=== PATIENT | female | born 1930 | race Caucasian/White ===

== ENCOUNTER 2016-11-28 00:44 | Inpatient (IN) | payer MEDICARE, BC ==
[~2016-11-28] VITALS: Ht 165.1 cm; Wt 54.4 kg
[2016-11-28] VITALS (8 sets, daily range): BP systolic 99–123; BP diastolic 52–85
--- NOTE | 2016-11-28 00:53 | Emergency Room Report ---
History of Present Illness General Chief Complaint: Generalized Weakness Source: Patient, EMS Present Illness HPI Is an 86-year-old female with multiple medical problem. She presents with chief complaint of abdominal pain and vomiting. Onset just prior to arrival. Vomiting twice per nonbloody nonbilious. Pain is diffuse in nature. She felt dizzy. EMS gave her fluid and Zofran. Better now. Denies any other complaint. Pain is 7/10. Crampy in nature. Allergies: Coded Allergies: No Known Allergies (Unverified , 11/28/16) Patient History Past Medical History: see triage record, old chart reviewed Past Surgical History: hysterectomy Pertinent Family History: none Social History: Denies: smoking Now: No Immunizations: other Reviewed Nursing Documentation: PMH: Agreed, PSxH: Agreed Nursing Documentation-PMH Hx Gastrointestinal Problems: Yes - COLITIS Review of Systems Eye: Denies: blurred vision, eye pain ENT: Denies: ear pain, nose congestion, throat swelling Respiratory: Denies: cough, shortness of breath Cardiovascular: Denies: chest pain, palpitations Gastrointestinal: Reports: abdominal pain, nausea, vomiting, Denies: diarrhea Musculoskeletal: Denies: back pain, joint pain Skin: Denies: rash Neurological: Denies: headache, numbness Endocrine: Denies: increased thirst, increased urine Hematologic/Lymphatic: Denies: easy bruising All Other Systems: negative except mentioned in HPI Physical Exam Vital Signs Date Time Temp Pulse Resp B/P Pulse Ox O2 Delivery O2 Flow Rate FiO2 11/28/16 00:42 99.0 63 16 148/69 98 Room Air vitals unremarkable Sp02 EP Interpretation: reviewed, normal General Appearance: well appearing, alert, mild distress - Mild Head: normocephalic, atraumatic Eyes: bilateral eye EOMI, bilateral eye PERRL ENT: hearing grossly normal, normal pharynx Neck: full range of motion, supple, no meningismus Respiratory: chest non-tender, lungs clear, normal breath sounds Cardiovascular #1: regular rate, rhythm, no murmur Gastrointestinal: normal bowel sounds, no mass, no organomegaly, no bruit, non- distended, tenderness - Diffuse, decreased bowel sounds Musculoskeletal: back normal, gait/station normal, normal range of motion Psychiatric: mood/affect normal Skin: warm/dry Medical Decision Making Diagnostic Impression: Primary Impression: Intractable nausea and vomiting Qualified Codes: R11.2 - Nausea with vomiting, unspecified Additional Impressions: Dizziness of unknown cause Abdominal pain Qualified Codes: R10.84 - Generalized abdominal pain ER Course Patient presents with vomiting and dizziness. No evidence of CVA with TIA. No evidence of obstruction or acute abdomen. CT scan of abdomen is unremarkable. She still felt nauseous and dizzy. We'll get for further workup. No evidence of ACS, PE, dissection or infection. May be a beginning of a gastroenteritis. Laboratory Tests Test 11/28/16 00:56 11/28/16 01:20 White Blood Count 11.5 K/UL (4.8-10.8) H Red Blood Count 5.22 M/UL (4.20-5.40) Hemoglobin 15.6 G/DL (12.0-16.0) Hematocrit 48.1 % (37.0-47.0) H Mean Corpuscular Volume 92 FL (80-99) Mean Corpuscular Hemoglobin 30.0 PG (27.0-31.0) Mean Corpuscular Hemoglobin Concent 32.6 G/DL (32.0-36.0) Red Cell Distribution Width 12.9 % (11.6-14.8) Platelet Count 196 K/UL (150-450) Mean Platelet Volume 7.9 FL (6.5-10.1) Neutrophils (%) (Auto) 82.8 % (45.0-75.0) H Lymphocytes (%) (Auto) 7.9 % (20.0-45.0) L Monocytes (%) (Auto) 7.5 % (1.0-10.0) Eosinophils (%) (Auto) 0.5 % (0.0-3.0) Basophils (%) (Auto) 1.3 % (0.0-2.0) Sodium Level 143 mEQ/L (135-145) Potassium Level 4.2 mEQ/L (3.4-4.9) Chloride Level 100 mEQ/L (98-107) Carbon Dioxide Level 26 mEQ/L (20-30) Anion Gap 17 (5-15) H Blood Urea Nitrogen 27 mg/dL (7-23) H Creatinine 1.0 mg/dL (0.5-0.9) H Estimat Glomerular Filtration Rate mL/min (>60) Glucose Level 171 mg/dL (74-106) H Calcium Level 9.2 mg/dL (8.6-10.2) Total Bilirubin 0.5 mg/dL (0.0-1.2) Aspartate Amino Transf (AST/SGOT) 22 U/L (5-40) Alanine Aminotransferase (ALT/SGPT) 14 U/L (3-33) Alkaline Phosphatase 83 U/L (35-104) Troponin I < 0.30 ng/mL (<=0.30) Total Protein 7.0 g/dL (6.6-8.7) Albumin 4.2 g/dL (3.5-5.2) Globulin 2.8 g/dL Albumin/Globulin Ratio 1.5 (1.0-2.7) Lipase 79 U/L (< 60) H Urine Color Yellow Urine Appearance Clear Urine pH 7 (4.5-8.0) Urine Specific [place] 1.015 (1.005-1.035) Urine Protein Negative (NEGATIVE) Urine Glucose (UA) Negative (NEGATIVE) Urine Ketones Negative (NEGATIVE) Urine Occult Blood 1+ (NEGATIVE) H Urine Nitrite Negative (NEGATIVE) Urine Bilirubin Negative (NEGATIVE) Urine Urobilinogen Normal MG/DL (0.0-1.0) Urine Leukocyte Esterase Negative (NEGATIVE) Urine RBC 2-4 /HPF (0 - 2) H Urine WBC 0-2 /HPF (0 - 2) Urine Squamous Epithelial Cells Few /LPF (NONE/OCC) Urine Bacteria None /HPF (NONE) Lab Results Impression labs unremarkable. EKG Diagnostic Results Rate: normal Rhythm: NSR ST Segments: no acute changes Rhythm Strip Diag. Results EP Interpretation: yes Rate: 65 Rhythm: NSR, no PVC's, no ectopy Chest X-Ray Diagnostic Results EP Interpretation: Yes Findings: no consolidation, no effusion, no pneumothorax, no acute cardiopulmonary disease Number of Views: 1 CT/MRI/US Diagnostic Results CT/MRI/US Diagnostic Results : Imaging Test Ordered: ct abd and pelvis Impression Neg per radiologist. Last Vital Signs Date Time Temp Pulse Resp B/P Pulse Ox O2 Delivery O2 Flow Rate FiO2 11/28/16 00:42 99.0 63 16 148/69 98 Room Air Status: improved Disposition: ADMITTED INPATIENT Condition: Serious JASON BAR M.D. Nov 28, 2016 00:52
[2016-11-28] MEDS ORDERED: Morphine Sulfate 2mg/ml Inj IVP ONE (01:00)
[2016-11-28 01:13] LABS: BASOPHILS % (AUTO) 1.3 % (0.0-2.0); EOSINOPHILS % (AUTO) 0.5 % (0.0-3.0); LYMPHOCYTES % (AUTO) 7.9 % (20.0-45.0); MEAN CORPUSCULAR HGB CONC 32.6 G/DL (32.0-36.0); MEAN CORPUSCULAR VOLUME 92 FL (80-99); MEAN PLATELET VOLUME 7.9 FL (6.5-10.1); MONOCYTES % (AUTO) 7.5 % (1.0-10.0); NEUTROPHILS % (AUTO) 82.8 % (45.0-75.0); PLATELET COUNT 196 K/UL (150-450); RED BLOOD COUNT 5.22 M/UL (4.20-5.40); RED CELL DISTRIBUTION WIDTH 12.9 % (11.6-14.8); WHITE BLOOD COUNT 11.5 K/UL (4.8-10.8)
[2016-11-28 01:27] LABS: ALANINE AMINOTRANSFERASE 14 U/L (3-33); ALBUMIN/GLOBULIN RATIO 1.5 (1.0-2.7); ANION GAP 17 (5-15); ASPARTATE AMINO TRANSFERASE 22 U/L (5-40); CALCIUM 9.2 mg/dL (8.6-10.2); CARBON DIOXIDE 26 mEQ/L (20-30); CHLORIDE 100 mEQ/L (98-107); HEMOLYSIS 12; LIPASE 79 U/L (< 60); POTASSIUM 4.2 mEQ/L (3.4-4.9); SODIUM 143 mEQ/L (135-145)
[2016-11-28 01:28] LABS: TROPONIN I < 0.30 ng/mL (<=0.30)
[2016-11-28 02:06] LABS: APPEARANCE,URINE CLEAR; KETONES,URINE NEGATIVE (NEGATIVE); LEUKOCYTE ESTERASE ,URINE NEGATIVE (NEGATIVE); NITRITE,URINE NEGATIVE (NEGATIVE); PH,URINE 7 (4.5-8.0); PROTEIN,URINE NEGATIVE (NEGATIVE); SQUAMOUS EPITHELIAL CELL,UR FEW /LPF (NONE/OCC); UROBILINOGEN,URINE NORMAL MG/DL (0.0-1.0); WBC,URINE 0-2 /HPF (0 - 2)
[2016-11-28] MEDS ORDERED: Metoclopramide 10mg/2ml Inj IVP ONE (04:15)
[2016-11-28] MEDS ORDERED: Mylanta II UD 30ml ORAL PRN (07:15)
[2016-11-28] MEDS ORDERED: Nitroglycerin Subl 0.4mg tab (Bottle Of 25) SL PRN (07:15)
[2016-11-28] MEDS ORDERED: Morphine Sulfate 2mg/ml Inj IVP PRN (07:15)
[2016-11-28] MEDS ORDERED: Miralax 17gm pkt ORAL PRN (07:15)
--- NOTE | 2016-11-28 09:18 | History and Physical Report ---
DATE OF ADMISSION: 11/28/2016 TIME SEEN: At 8 a.m. ATTENDING PHYSICIAN: David Duckworth D.O. CONSULTANTS: 1. Jaden Marshall M.D. 2. Randall Neil M.D. 3. Morales Schafer M.D. 4. Houston Guillen M.D. CHIEF COMPLAINT: Dizziness, vomiting, lightheadedness, and abdominal pain. BRIEF HISTORY: This is an 86-year-old female, who lives at home, presents to [facility] with a history of dizziness, lightheaded, vomiting, and abdominal pain. The patient diagnosed with above, admitted to medical floor for further treatment. Currently, calm in bed, feeling little bit better, slightly dizzy. No complaints otherwise. REVIEW OF SYSTEMS: No chest pain. No shortness of breath. No nausea, vomiting, or diarrhea. PAST MEDICAL HISTORY: Hysterectomy. MEDICATIONS: Include, 1. Protonix. 2. Tylenol. 3. Motrin. 4. MiraLax. 5. Zofran. 6. Restoril. 7. Benadryl. 8. Dilantin. 9. Nitroglycerin. ALLERGIES: Denies. SOCIAL HISTORY: No smoking. No alcohol. No intravenous drug abuse. FAMILY HISTORY: Noncontributory. PHYSICAL EXAMINATION: GENERAL: Calm in bed, oriented x2, in no acute distress. VITAL SIGNS: Temperature is 98, pulse 88, respirations 16, and blood pressure 117/60. CARDIOVASCULAR: No murmur. LUNGS: Distant and clear. ABDOMEN: Positive bowel sounds. Nontender. Nondistended. EXTREMITIES: No cyanosis, clubbing, or edema. NEUROLOGIC: The patient moves all extremities, but slightly weak. LABORATORY AND DIAGNOSTIC DATA: White count 11.5, otherwise CBC is normal. BMP shows BUN and creatinine 27 and 1.0, glucose 171, otherwise normal. Urinalysis is negative. ASSESSMENT: 1. Vomiting. 2. Diabetes. 3. Dizziness. 4. Lightheadedness. 5. Abdominal pain. PLAN: 1. Continue premedications. 2. OT/PT. 3. Dietary evaluation. 4. IV fluids. 5. Blood pressure and blood sugar control. 6. Pain control. 7. CBC and BMP. 8. Dr. Marshall, Dr. Neil, Dr. Schafer, and Dr. Guillen to consult. David Duckworth D.O. DR: JASON JOB#: [id number] CC:
[2016-11-28] MEDS: Pantoprazole Inj IVP SCH (10:11)
[2016-11-28] MEDS: Heparin 5000 units/ml inj SUBQ SCH ×2 (10:12→20:58)
[2016-11-28] MEDS ORDERED: Meclizine 25mg tab ORAL PRN (10:15)
--- NOTE | 2016-11-28 10:36 | Neurology Progress Note ---
Objective Physical Exam Last Vital Signs Date Time Temp Pulse Resp B/P Pulse Ox O2 Delivery O2 Flow Rate FiO2 11/28/16 08:02 98.2 88 16 117/60 94 Room Air Laboratory Tests Test 11/28/16 00:56 11/28/16 01:20 White Blood Count 11.5 K/UL (4.8-10.8) H Red Blood Count 5.22 M/UL (4.20-5.40) Hemoglobin 15.6 G/DL (12.0-16.0) Hematocrit 48.1 % (37.0-47.0) H Mean Corpuscular Volume 92 FL (80-99) Mean Corpuscular Hemoglobin 30.0 PG (27.0-31.0) Mean Corpuscular Hemoglobin Concent 32.6 G/DL (32.0-36.0) Red Cell Distribution Width 12.9 % (11.6-14.8) Platelet Count 196 K/UL (150-450) Mean Platelet Volume 7.9 FL (6.5-10.1) Neutrophils (%) (Auto) 82.8 % (45.0-75.0) H Lymphocytes (%) (Auto) 7.9 % (20.0-45.0) L Monocytes (%) (Auto) 7.5 % (1.0-10.0) Eosinophils (%) (Auto) 0.5 % (0.0-3.0) Basophils (%) (Auto) 1.3 % (0.0-2.0) Sodium Level 143 mEQ/L (135-145) Potassium Level 4.2 mEQ/L (3.4-4.9) Chloride Level 100 mEQ/L (98-107) Carbon Dioxide Level 26 mEQ/L (20-30) Anion Gap 17 (5-15) H Blood Urea Nitrogen 27 mg/dL (7-23) H Creatinine 1.0 mg/dL (0.5-0.9) H Estimat Glomerular Filtration Rate mL/min (>60) Glucose Level 171 mg/dL (74-106) H Calcium Level 9.2 mg/dL (8.6-10.2) Total Bilirubin 0.5 mg/dL (0.0-1.2) Aspartate Amino Transf (AST/SGOT) 22 U/L (5-40) Alanine Aminotransferase (ALT/SGPT) 14 U/L (3-33) Alkaline Phosphatase 83 U/L (35-104) Troponin I < 0.30 ng/mL (<=0.30) Total Protein 7.0 g/dL (6.6-8.7) Albumin 4.2 g/dL (3.5-5.2) Globulin 2.8 g/dL Albumin/Globulin Ratio 1.5 (1.0-2.7) Lipase 79 U/L (< 60) H Urine Color Yellow Urine Appearance Clear Urine pH 7 (4.5-8.0) Urine Specific [place] 1.015 (1.005-1.035) Urine Protein Negative (NEGATIVE) Urine Glucose (UA) Negative (NEGATIVE) Urine Ketones Negative (NEGATIVE) Urine Occult Blood 1+ (NEGATIVE) H Urine Nitrite Negative (NEGATIVE) Urine Bilirubin Negative (NEGATIVE) Urine Urobilinogen Normal MG/DL (0.0-1.0) Urine Leukocyte Esterase Negative (NEGATIVE) Urine RBC 2-4 /HPF (0 - 2) H Urine WBC 0-2 /HPF (0 - 2) Urine Squamous Epithelial Cells Few /LPF (NONE/OCC) Urine Bacteria None /HPF (NONE) Impression/Recommendations Problems: (1) Acute onset positional vertigo, nausea/vomiting,gait ataxia. (2) r/o Benign positional vertigo r.o acute stroke in post circulation (3) hyperglycemia (4) hearing loss Status: stable Recommendations #[id number] stat MRI Brain ONEL HOLBROOK Nov 28, 2016 10:36
--- NOTE | 2016-11-28 10:51 | Diagnostic Imaging Report ---
Indication: Abdominal pain Technique: Ultrasound of the abdomen. Comparison: CT abdomen and pelvis from earlier the same day Findings: Visualized pancreas is without focal sonographic abnormality. No pancreatic fluid collections are seen. The liver is normal in size and echogenicity. No focal liver lesions are identified. Visualized portions of the main portal vein and the hepatic veins are grossly unremarkable although incompletely evaluated. The gallbladder is unremarkable without evidence of stones. Gallbladder wall thickness is within normal limits. Sonographic Wilkins's is negative. Common bile duct measures 5 mm. Bilateral kidneys demonstrate normal echogenicity. No focal renal lesions are seen. There is no hydronephrosis. No echogenic renal stones are identified. The spleen is normal in size and echogenicity. The visualized aorta is normal in caliber. Visualized portions of the inferior vena cava are unremarkable. Impression: No evidence of gallstones. No sonographically evident focal pancreatic abnormality. Correlation with pancreatic enzymes recommended. No hydronephrosis.
[2016-11-28 11:36] LABS: CHOLESTEROL/HDL RATIO 2.1 (3.3-4.4)
[2016-11-28] MEDS ORDERED: D5 1/2NS 1,000 ML IV SCH ×2 (13:15→17:40)
--- NOTE | 2016-11-28 13:25 | Consultation ---
History of Present Illness General Date patient seen: Nov 28, 2016 Chief Complaint: weakness and dyspnea Referring physician: Dr. Duckworth Reason for Consultation: Inpatinet management Present Illness HPI 86 yo female with pmhx of dizziness, lightheaded, vomiting, and abdominal pain. A CXR obtained in the ER demonstrated left lung collapse I was asked to consult on the case. The patient appears to be in no acute respiratory distress, pulse oximetry is also adequate and physiologically acceptable range. Patient is not able to give history secondary to weakness and lethargy, history was obtained from the hospitalist and ER physician. At this point aspiration precautions and 2 pillow elevation of left chest is recommended to conservatively address the patients apparent left lung collapse and follow up CXR will be indicated if the patient has worsening of symptomology. Allergies: Coded Allergies: No Known Allergies (Unverified , 11/28/16) Patient History Healthcare decision maker Resuscitation status Full Code Advanced Directive on File Past Medical/Surgical History Past Medical/Surgical History: (1) colitis (2) hearing loss (3) Acute onset positional vertigo, nausea/vomiting,gait ataxia. 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 Last 24 Hour Vital Signs Date Time Temp Pulse Resp B/P Pulse Ox O2 Delivery O2 Flow Rate FiO2 11/28/16 11:16 99.9 84 16 115/61 94 Room Air 11/28/16 08:02 98.2 88 16 117/60 94 Room Air 11/28/16 05:30 98.1 85 20 115/53 100 Room Air 11/28/16 04:37 98.0 86 21 112/55 100 Room Air 11/28/16 04:37 98.0 86 21 112/55 100 Room Air 11/28/16 03:00 97.9 83 20 111/52 98 Room Air 11/28/16 00:50 98.7 74 16 99/85 99 Room Air 11/28/16 00:42 99.0 63 16 148/69 98 Room Air Intake and Output 11/27/16 11/28/16 19:00 07:00 Intake Total 1000 ml Output Total 400 ml Balance 600 ml Intake Oral 0 ml IV Total 1000 ml Output Urine Total 400 ml # Voids 1 Laboratory Tests Test 11/28/16 00:56 11/28/16 01:20 11/28/16 10:45 White Blood Count 11.5 K/UL (4.8-10.8) H Red Blood Count 5.22 M/UL (4.20-5.40) Hemoglobin 15.6 G/DL (12.0-16.0) Hematocrit 48.1 % (37.0-47.0) H Mean Corpuscular Volume 92 FL (80-99) Mean Corpuscular Hemoglobin 30.0 PG (27.0-31.0) Mean Corpuscular Hemoglobin Concent 32.6 G/DL (32.0-36.0) Red Cell Distribution Width 12.9 % (11.6-14.8) Platelet Count 196 K/UL (150-450) Mean Platelet Volume 7.9 FL (6.5-10.1) Neutrophils (%) (Auto) 82.8 % (45.0-75.0) H Lymphocytes (%) (Auto) 7.9 % (20.0-45.0) L Monocytes (%) (Auto) 7.5 % (1.0-10.0) Eosinophils (%) (Auto) 0.5 % (0.0-3.0) Basophils (%) (Auto) 1.3 % (0.0-2.0) Sodium Level 143 mEQ/L (135-145) Potassium Level 4.2 mEQ/L (3.4-4.9) Chloride Level 100 mEQ/L (98-107) Carbon Dioxide Level 26 mEQ/L (20-30) Anion Gap 17 (5-15) H Blood Urea Nitrogen 27 mg/dL (7-23) H Creatinine 1.0 mg/dL (0.5-0.9) H Estimat Glomerular Filtration Rate mL/min (>60) Glucose Level 171 mg/dL (74-106) H Calcium Level 9.2 mg/dL (8.6-10.2) Total Bilirubin 0.5 mg/dL (0.0-1.2) Aspartate Amino Transf (AST/SGOT) 22 U/L (5-40) Alanine Aminotransferase (ALT/SGPT) 14 U/L (3-33) Alkaline Phosphatase 83 U/L (35-104) Troponin I < 0.30 ng/mL (<=0.30) Total Protein 7.0 g/dL (6.6-8.7) Albumin 4.2 g/dL (3.5-5.2) Globulin 2.8 g/dL Albumin/Globulin Ratio 1.5 (1.0-2.7) Lipase 79 U/L (< 60) H Urine Color Yellow Urine Appearance Clear Urine pH 7 (4.5-8.0) Urine Specific [place] 1.015 (1.005-1.035) Urine Protein Negative (NEGATIVE) Urine Glucose (UA) Negative (NEGATIVE) Urine Ketones Negative (NEGATIVE) Urine Occult Blood 1+ (NEGATIVE) H Urine Nitrite Negative (NEGATIVE) Urine Bilirubin Negative (NEGATIVE) Urine Urobilinogen Normal MG/DL (0.0-1.0) Urine Leukocyte Esterase Negative (NEGATIVE) Urine RBC 2-4 /HPF (0 - 2) H Urine WBC 0-2 /HPF (0 - 2) Urine Squamous Epithelial Cells Few /LPF (NONE/OCC) Urine Bacteria None /HPF (NONE) Triglycerides Level 57 mg/dL (< 150) Cholesterol Level 239 mg/dL (< 200) H LDL Cholesterol 114 mg/dL (60-99) H HDL Cholesterol 114 mg/dL (> 60) H Cholesterol/HDL Ratio 2.1 (3.3-4.4) L Vitamin B12 Level 284 pg/mL (211-946) Height (Feet): 5 Height (Inches): 5.00 Weight (Pounds): 120 Medications Current Medications Medications (Trade) Dose Ordered Sig/Dalia Route PRN Reason Start Time Stop Time Status Last Admin Dose Admin Acetaminophen (Tylenol) 650 mg Q4H PRN ORAL fever 11/28/16 07:15 12/28/16 07:14 Al Hydroxide/Mg Hydroxide (Mylanta II) 30 ml Q6H PRN ORAL dyspepsia 11/28/16 07:15 12/28/16 07:14 Dextrose (Dextrose 50%) STAT PRN IV Hypoglycemia 11/28/16 07:15 12/28/16 07:14 Dextrose/Sodium Chloride (D5 0.45% NS) 1,000 ml @ 75 mls/hr [id number] IV 11/28/16 13:15 12/28/16 13:14 11/28/16 13:07 Diphenhydramine HCl (Benadryl) 25 mg Q6H PRN ORAL Itching/Pruritis 11/28/16 07:15 12/28/16 07:14 Heparin Sodium (Porcine) (Heparin 5000 units/ml) 5,000 units EVERY 12 HOURS SUBQ 11/28/16 09:00 12/28/16 08:59 11/28/16 10:12 Meclizine HCl 12.5 mg 12.5 mg Q6H PRN ORAL for dizziness 11/28/16 10:15 12/28/16 10:14 Morphine Sulfate (Morphine Sulfate) 2 mg EVERY 4 HOURS PRN IVP severe Pain (Pain Scale 7-10) 11/28/16 07:15 12/05/16 07:14 Nitroglycerin (Ntg) 0.4 mg Q5M X 3 DOSES PRN SL Prn Chest Pain 11/28/16 07:15 12/28/16 07:14 Ondansetron HCl (Zofran) 4 mg Q6H PRN IVP Nausea & Vomiting 11/28/16 07:15 12/28/16 07:14 Pantoprazole (Protonix) 40 mg DAILY IVP 11/28/16 09:00 12/28/16 08:59 11/28/16 10:11 Polyethylene Glycol (Miralax) 17 gm HSPRN PRN ORAL Constipation 11/28/16 07:15 12/28/16 07:14 Temazepam (Restoril) 15 mg HSPRN PRN ORAL Insomnia 11/28/16 07:15 12/05/16 07:14 Assessment/Plan Problem List: (1) Abdominal pain ICD Codes: R10.9 - Unspecified abdominal pain SNOMED: 82589037, [id number] Qualifiers: Qualified Codes: R10.84 - Generalized abdominal pain (2) Intractable nausea and vomiting ICD Codes: R11.2 - Nausea with vomiting, unspecified SNOMED: 185270975, [id number] Qualifiers: Qualified Codes: R11.2 - Nausea with vomiting, unspecified (3) Dehydration ICD Codes: E86.0 - Dehydration SNOMED: 15324762 Status: stable, progressing Assessment/Plan NPO IV fluids symptomatic treatment check electrolytes start Levoflox for low grade temp f/u GI Recommendations. MICHAEL BONNER Nov 28, 2016 13:25
--- NOTE | 2016-11-28 15:09 | Cardiology Progress Note ---
Assessment/Plan Assessment/Plan The patient is seen and examined, full consult note is dictated. Objective Last 24 Hour Vital Signs Date Time Temp Pulse Resp B/P Pulse Ox O2 Delivery O2 Flow Rate FiO2 11/28/16 11:16 99.9 84 16 115/61 94 Room Air 11/28/16 08:02 98.2 88 16 117/60 94 Room Air 11/28/16 05:30 98.1 85 20 115/53 100 Room Air 11/28/16 04:37 98.0 86 21 112/55 100 Room Air 11/28/16 04:37 98.0 86 21 112/55 100 Room Air 11/28/16 03:00 97.9 83 20 111/52 98 Room Air 11/28/16 00:50 98.7 74 16 99/85 99 Room Air 11/28/16 00:42 99.0 63 16 148/69 98 Room Air Intake and Output 11/27/16 11/28/16 19:00 07:00 Intake Total 1000 ml Output Total 400 ml Balance 600 ml Intake Oral 0 ml IV Total 1000 ml Output Urine Total 400 ml # Voids 1 Laboratory Tests Test 11/28/16 00:56 11/28/16 01:20 11/28/16 10:45 White Blood Count 11.5 K/UL (4.8-10.8) H Red Blood Count 5.22 M/UL (4.20-5.40) Hemoglobin 15.6 G/DL (12.0-16.0) Hematocrit 48.1 % (37.0-47.0) H Mean Corpuscular Volume 92 FL (80-99) Mean Corpuscular Hemoglobin 30.0 PG (27.0-31.0) Mean Corpuscular Hemoglobin Concent 32.6 G/DL (32.0-36.0) Red Cell Distribution Width 12.9 % (11.6-14.8) Platelet Count 196 K/UL (150-450) Mean Platelet Volume 7.9 FL (6.5-10.1) Neutrophils (%) (Auto) 82.8 % (45.0-75.0) H Lymphocytes (%) (Auto) 7.9 % (20.0-45.0) L Monocytes (%) (Auto) 7.5 % (1.0-10.0) Eosinophils (%) (Auto) 0.5 % (0.0-3.0) Basophils (%) (Auto) 1.3 % (0.0-2.0) Sodium Level 143 mEQ/L (135-145) Potassium Level 4.2 mEQ/L (3.4-4.9) Chloride Level 100 mEQ/L (98-107) Carbon Dioxide Level 26 mEQ/L (20-30) Anion Gap 17 (5-15) H Blood Urea Nitrogen 27 mg/dL (7-23) H Creatinine 1.0 mg/dL (0.5-0.9) H Estimat Glomerular Filtration Rate mL/min (>60) Glucose Level 171 mg/dL (74-106) H Calcium Level 9.2 mg/dL (8.6-10.2) Total Bilirubin 0.5 mg/dL (0.0-1.2) Aspartate Amino Transf (AST/SGOT) 22 U/L (5-40) Alanine Aminotransferase (ALT/SGPT) 14 U/L (3-33) Alkaline Phosphatase 83 U/L (35-104) Troponin I < 0.30 ng/mL (<=0.30) Total Protein 7.0 g/dL (6.6-8.7) Albumin 4.2 g/dL (3.5-5.2) Globulin 2.8 g/dL Albumin/Globulin Ratio 1.5 (1.0-2.7) Lipase 79 U/L (< 60) H Urine Color Yellow Urine Appearance Clear Urine pH 7 (4.5-8.0) Urine Specific [place] 1.015 (1.005-1.035) Urine Protein Negative (NEGATIVE) Urine Glucose (UA) Negative (NEGATIVE) Urine Ketones Negative (NEGATIVE) Urine Occult Blood 1+ (NEGATIVE) H Urine Nitrite Negative (NEGATIVE) Urine Bilirubin Negative (NEGATIVE) Urine Urobilinogen Normal MG/DL (0.0-1.0) Urine Leukocyte Esterase Negative (NEGATIVE) Urine RBC 2-4 /HPF (0 - 2) H Urine WBC 0-2 /HPF (0 - 2) Urine Squamous Epithelial Cells Few /LPF (NONE/OCC) Urine Bacteria None /HPF (NONE) Triglycerides Level 57 mg/dL (< 150) Cholesterol Level 239 mg/dL (< 200) H LDL Cholesterol 114 mg/dL (60-99) H HDL Cholesterol 114 mg/dL (> 60) H Cholesterol/HDL Ratio 2.1 (3.3-4.4) L Vitamin B12 Level 284 pg/mL (211-946) [place] PAULINO Nov 28, 2016 15:09
[2016-11-28] MEDS: D5NS 1,000 ML IV SCH (16:25)
--- NOTE | 2016-11-28 21:28 | Consultation ---
DATE OF CONSULTATION: 11/28/2016 NEUROLOGICAL CONSULTATION CONSULTING PHYSICIAN: Houston Guillen M.D. REQUESTING PHYSICIAN: David Duckworth D.O. HISTORY OF PRESENT ILLNESS: The patient is an 86-year-old female, seen in neurological consultation to evaluate a new onset of vertigo, nausea, and vomiting. The patient informed me that yesterday, she was doing fairly well and prepared her dinner. After having dinner at around 6 p.m., she was sitting and watching TV when approximately at 8 or 9 p.m., she had a very new onset of acute spinning sensation accompanied by severe nausea and vomiting. The patient tried to get up and ambulate, but was profoundly weak, is up herself to the floor being unable to get up. She tried to call her , who was asleep at that time, but after banging to the wall, he woke up and found her on the ground. She had a bowel movement with some blood. She was fully awake. Paramedics were called to the scene. She was brought to this hospital. She was complaining of abdominal pain, vomiting, and dizziness. The patient was started on intravenous fluids, Zofran, started to feel some improvement. Her vital signs were stable with temperature 99.1 degrees, and blood pressure 148/69. Her initial workup included laboratory studies with WBC of 11.5. Chemistry panel, BUN of 27, creatinine 1.0, lipase 79, and anion gap of 17. Urinalysis, unremarkable. Her EKG, normal sinus rhythm. No acute changes. No PVC. No ectopies. Chest x-ray, no acute cardiopulmonary disease. CT scan of the abdomen and pelvis was negative as per Radiology. The patient now reports that overnight, she was not sleeping well and was quite uncomfortable. Currently, she is complaining of generalized weakness, dull headache, and lightheadedness. PAST MEDICAL HISTORY: The patient has a history of ulcerative colitis 50 years ago, but she is currently still on Asacol. The patient is seeing an internists, Melissa. The patient denies any other major medical problems. She was not on any other medications. SOCIAL HISTORY: She is , her currently at bedside. The patient lives in a separate home and she takes care of the house and she does her dinners being socially and physically active. No alcohol. No drug abuse. Nonsmoker. FAMILY HISTORY: Noncontributory. REVIEW OF SYMPTOMS: A 14-point of review of system was obtained. This was negative except hearing loss bilaterally, hemorrhoids, and currently mild headaches, lightheadedness, slight nausea, and difficulty ambulation. Denies chest pain or palpitations or respiratory difficulties. PHYSICAL EXAMINATION: GENERAL: A well-developed, well-nourished, pleasant lady, not in acute distress, lying comfortably in bed. Her is at bedside. VITAL SIGNS: Her vital signs, now stable. Blood pressure 117/60, heart rate of 88, and afebrile. MUSCULOSKELETAL: Unremarkable. There is no deformities. Peripheral pulses 1+ and symmetric. MENTAL STATUS: The patient is alert and oriented x3 with no evidence of aphasia or apraxia. Cognitive function normal. CRANIAL NERVE II: Pupils both responding to light and accommodation. Extraocular movement full range. No nystagmus. CRANIAL NERVE V: Normal corneal responses. CRANIAL NERVE VII: No facial asymmetry. CRANIAL NERVE VIII: Decreased hearing bilaterally. Her head turns with as the patient was getting up, she felt dizziness. No nystagmus noted. CRANIAL NERVE IX THROUGH XII: Tongue is in midline. Symmetric palate elevation. MOTOR EXAMINATION: Motor examination, normal muscle tone and strength 5/5 in all extremities. Deep tendon reflexes 1+ and symmetric with downgoing toes on both sides. SENSORY EXAM: Normal to pinprick and light touch. Coordination, clumsy shjngv-pj-acan bilaterally. Normal vimt-wj-rgow test bilaterally. Positive Romberg test. Gait, wobbly and unstable. IMPRESSION: 1. Acute onset of positional vertigo, nausea, vomiting, and gait ataxia. Rule out a stroke in posterior circulation. Rule out benign positional paroxysmal vertigo. 2. Ulcerative colitis. 3. Hemorrhoids. 4. Hearing loss. 5. Hyperglycemia. RECOMMENDATION: 1. Stat MRI of the brain to rule out acute stroke. 2. Meclizine 12.5 mg t.i.d. p.r.n. 3. Guaiac stool. 4. Lipid panel, B12, thyroid, sedimentation rate, and ALLAN. 5. Strict bedrest. Fall precaution. 6. Repeat CBC and electrolyte panel. Thank you for allowing me to see this interesting patient in neurological consultation. Houston Roz Guillen DR: JAYCE JOB#: [id number] CC:
[2016-11-29] VITALS: BP 135/67
--- NOTE | 2016-11-29 03:38 | Consultation ---
DATE OF CONSULTATION: 11/28/2016 REFERRING PHYSICIAN: David Duckworth D.O. REASON FOR CONSULTATION: Management of hypotension. HISTORY OF PRESENT ILLNESS: The patient is a very pleasant, delightful, 86-year-old female, who presents to the hospital with abdominal pain as well as nausea and vomiting. Apparently, she has had a few episodes of vomiting and as a result became dizzy and lightheaded. On arrival to emergency department, blood pressure was 148/69, orthostatic was not checked, pulse was 63, and temperature was 99.0 degrees Fahrenheit. She had mild leukocytosis. The patient was admitted to Med/Surg with diagnosis of intractable nausea and vomiting. Of note, her lipase was also elevated at 78. Cardiology consultation was made as her blood pressure dropped from the initial point to 99/85 mmHg. Her heart rate has also jumped at 88 beats per minute. At the bedside, the patient is alert and awake and not complaining of chest pain or shortness of breath. She has mild dizziness and lightheadedness at this point. She also complains of some reflux. PAST MEDICAL HISTORY: Includes history of colitis, for which, she does not take any medication. PAST SURGICAL HISTORY: Hysterectomy. FAMILY HISTORY: No premature coronary artery disease in first-degree relatives. SOCIAL HISTORY: Denies any tobacco or illicit drug use. She drinks a glass of wine occasionally. LIST OF MEDICATIONS: None. REVIEW OF SYSTEMS: Constitutional: She has some generalized weakness and some chills and fever. HEENT: Denies any headache, diplopia, or blurred vision. Cardiovascular: Denies any chest pain, shortness of breath, PND, orthopnea, or leg swelling. Pulmonary: Denies any cough, hemoptysis, or wheezing. Gastrointestinal: She had some abdominal pain as well as intractable nausea and vomiting, but no GI bleed that brought to my attention that the patient also had some coffee-ground emesis. Genitourinary: Denies any hematuria, dysuria, or incontinence. Neurology: Denies any motor dysfunction, sensory deficit, or altered speech. Musculoskeletal: Denies any arthralgia or myalgia. PHYSICAL EXAMINATION: VITAL SIGNS: Blood pressure was 148/69, dropped to 99/85; heart rate 88; respirations of 16; O2 saturation 99% on room air; and temperature was 99.9 degrees Fahrenheit. GENERAL: The patient is a very unfortunate 86-year-old female, in no apparent respiratory distress, alert, and oriented x4. HEENT: Atraumatic and normocephalic. Anicteric. Pupils are equal, round, and reactive to light and accommodation. Extraocular muscles are intact. NECK: JVP is 0. No carotid bruit. Carotid upstroke is 2+ bilaterally. CARDIOVASCULAR: Normal S1 and S2. Regular rate and rhythm. No murmurs, gallops, or rubs. PMI is at fourth intercostal space at midclavicular line. LUNGS: Clear to auscultation bilaterally. ABDOMEN: Slight tenderness over the epigastric area, but normal bowel sounds. Soft and nontender. No hepatosplenomegaly. EXTREMITIES: No evidence of edema, clubbing, or cyanosis. LABORATORY FINDINGS: Sodium 143, potassium is 4.2, chloride 100, bicarbonate is 26, BUN of 27, creatinine 1.0, glucose is 171, and calcium is 9.2. Troponin I is less than 0.3. Total cholesterol was 239, LDL was 114, HDL was 114, and lipase was 79. WBC 11.5, hemoglobin of 15.6, hematocrit of 48.1, and platelet count is 196,000. Abdominal ultrasound showed no evidence of gallstones. 12-lead electrocardiogram per paramedics showed sinus rhythm at a rate of [address] and T-wave abnormalities. ASSESSMENT AND PLAN: The patient is a very unfortunate 86-year-old female, seen in Cardiology consultation at request of Dr. Duckworth. 1. Hypotension secondary to volume loss due to intractable nausea and vomiting. The management of this condition is fluid resuscitation with normal saline. I would like to start with D5 normal saline. The reason for nausea and vomiting, most likely the clinical picture is acute pancreatitis. Gastroenterology, Dr. Franco has been informed. The patient has been placed on NPO; and however, he started with a clear liquid, which she tolerates. 2. History of colitis in the past, on no medication. 3. At this time, I would like to order a 2D echocardiography for assessment of left ventricular systolic and diastolic function. I would like to thank, Dr. Ivey for allowing me to participate in the care of this patient. Morales Schafer M.D. DR: JESSE JOB#: [id number] CC:
[2016-11-29 04:00] VITALS: BP 126/59
[2016-11-29] MEDS: D5NS 1,000 ML IV SCH (06:00)
--- NOTE | 2016-11-29 07:49 | General Progress Note ---
Assessment/Plan Problem List: (1) Intractable nausea and vomiting ICD Codes: R11.2 - Nausea with vomiting, unspecified SNOMED: 687354413, [id number] Qualifiers: Qualified Codes: R11.2 - Nausea with vomiting, unspecified (2) Dizziness of unknown cause ICD Codes: R42 - Dizziness and giddiness SNOMED: 844410841 (3) Acute onset positional vertigo, nausea/vomiting,gait ataxia. (4) r/o Benign positional vertigo r.o acute stroke in post circulation (5) hyperglycemia (6) Dehydration ICD Codes: E86.0 - Dehydration SNOMED: 99396885 (7) Abdominal pain ICD Codes: R10.9 - Unspecified abdominal pain SNOMED: 43587443, 365753468 Qualifiers: Qualified Codes: R10.84 - Generalized abdominal pain Status: stable, progressing, tolerating diet Assessment/Plan ot pt diet cbc bmp in am dc plan Subjective Constitutional: Reports: weakness Allergies: Coded Allergies: No Known Allergies (Unverified , 11/28/16) All Systems: reviewed and negative except above Subjective sleepy calm Objective Last 24 Hour Vital Signs Date Time Temp Pulse Resp B/P Pulse Ox O2 Delivery O2 Flow Rate FiO2 11/29/16 04:00 98.6 72 17 126/59 100 Room Air 11/29/16 00:00 98.6 80 17 135/67 99 Room Air 11/28/16 20:00 98.1 81 16 117/64 92 Room Air 11/28/16 15:39 98.2 90 15 123/63 93 Room Air 11/28/16 11:16 99.9 84 16 115/61 94 Room Air 11/28/16 08:02 98.2 88 16 117/60 94 Room Air Intake and Output 11/28/16 11/29/16 19:00 07:00 Intake Total 1325 ml 1087 ml Output Total 800 ml 500 ml Balance 525 ml 587 ml Intake Oral 1100 ml 300 ml IV Total 225 ml 787 ml Output Urine Total 800 ml 500 ml # Voids 2 Laboratory Tests 11/28/16 10:45: Triglycerides Level 57, Cholesterol Level 239H, LDL Cholesterol 114H, HDL Cholesterol 114H, Cholesterol/HDL Ratio 2.1L, Vitamin B12 Level 284 11/28/16 22:43: Stool Occult Blood [Pending] 11/29/16 05:10: White Blood Count [Pending], Red Blood Count [Pending], Hemoglobin [Pending], Hematocrit [Pending], Mean Corpuscular Volume [Pending], Mean Corpuscular Hemoglobin [Pending], Mean Corpuscular Hemoglobin Concent [Pending], Red Cell Distribution Width [Pending], Platelet Count [Pending], Mean Platelet Volume [ Pending], Neutrophils (%) (Auto) [Pending], Lymphocytes (%) (Auto) [Pending], Monocytes (%) (Auto) [Pending], Eosinophils (%) (Auto) [Pending], Basophils (%) (Auto) [Pending], Activated Partial Thromboplast Time [Pending], Sodium Level [ Pending], Potassium Level [Pending], Chloride Level [Pending], Carbon Dioxide Level [Pending], Blood Urea Nitrogen [Pending], Creatinine [Pending], Estimat Glomerular Filtration Rate [Pending], Glucose Level [Pending], Calcium Level [ Pending], Total Bilirubin [Pending], Aspartate Amino Transf (AST/SGOT) [Pending] , Alanine Aminotransferase (ALT/SGPT) [Pending], Alkaline Phosphatase [Pending] , Total Protein [Pending], Albumin [Pending], Globulin [Pending], Amylase Level [Pending], Lipase [Pending] Height (Feet): 5 Height (Inches): 5.00 Weight (Pounds): 120 General Appearance: lethargic EENT: normal ENT inspection Neck: normal alignment Cardiovascular: normal peripheral pulses, normal rate, regular rhythm Respiratory/Chest: chest wall non-tender, lungs clear, normal breath sounds Abdomen: normal bowel sounds, non tender, soft Extremities: normal inspection Edema: no edema noted Arm (L), no edema noted Arm (R), no edema noted Leg (L), no edema noted Leg (R), no edema noted Pedal (L), no edema noted Pedal (R), no edema noted Generalized Neurologic: responsive, motor weakness Skin: normal pigmentation, warm/dry KADEN FLEMING Nov 29, 2016 07:49
[2016-11-29 07:55] LABS: BASOPHILS % (AUTO) 1.1 % (0.0-2.0); EOSINOPHILS % (AUTO) 3.8 % (0.0-3.0); LYMPHOCYTES % (AUTO) 25.4 % (20.0-45.0); MEAN CORPUSCULAR HEMOGLOBIN 30.1 PG (27.0-31.0); MEAN CORPUSCULAR HGB CONC 32.7 G/DL (32.0-36.0); MEAN CORPUSCULAR VOLUME 92 FL (80-99); MEAN PLATELET VOLUME 8.1 FL (6.5-10.1); MONOCYTES % (AUTO) 13.7 % (1.0-10.0); NEUTROPHILS % (AUTO) 55.9 % (45.0-75.0); PLATELET COUNT 168 K/UL (150-450); RED BLOOD COUNT 4.71 M/UL (4.20-5.40); RED CELL DISTRIBUTION WIDTH 12.9 % (11.6-14.8); WHITE BLOOD COUNT 5.1 K/UL (4.8-10.8)
[2016-11-29 08:00] VITALS: BP 114/59
[2016-11-29 08:19] LABS: ALANINE AMINOTRANSFERASE 10 U/L (3-33); ALBUMIN/GLOBULIN RATIO 1.4 (1.0-2.7); AMYLASE 39 U/L (10-110); ANION GAP 13 (5-15); ASPARTATE AMINO TRANSFERASE 17 U/L (5-40); CALCIUM 8.6 mg/dL (8.6-10.2); CARBON DIOXIDE 26 mEQ/L (20-30); CHLORIDE 107 mEQ/L (98-107); CREATININE 0.8 mg/dL (0.5-0.9); HEMOLYSIS 6; LIPASE 22 U/L (< 60); POTASSIUM 3.6 mEQ/L (3.4-4.9); SODIUM 146 mEQ/L (135-145); TOTAL PROTEIN 5.8 g/dL (6.6-8.7)
[2016-11-29] MEDS: Heparin 5000 units/ml inj SUBQ SCH (09:00)
[2016-11-29] MEDS: Pantoprazole Inj IVP SCH (09:41)
[2016-11-29] MEDS ORDERED: D5 1/2NS 1000ml IV ONE (11:15)
[2016-11-29] MEDS ORDERED: Tubing IV Secondary IV ONE (11:15)
[2016-11-29 12:00] VITALS: BP 139/76
--- NOTE | 2016-11-29 17:56 | General Progress Note ---
Subjective Allergies: Coded Allergies: No Known Allergies (Unverified , 11/28/16) Subjective feels better tolerating PO seen with at bedside this am Objective Last 24 Hour Vital Signs Date Time Temp Pulse Resp B/P Pulse Ox O2 Delivery O2 Flow Rate FiO2 11/29/16 14:33 96.8 11/29/16 12:00 96.8 75 19 139/76 100 Room Air 11/29/16 08:00 97.7 72 20 114/59 98 Room Air 11/29/16 04:00 98.6 72 17 126/59 100 Room Air 11/29/16 00:00 98.6 80 17 135/67 99 Room Air 11/28/16 20:00 98.1 81 16 117/64 92 Room Air Intake and Output 11/28/16 11/29/16 19:00 07:00 Intake Total 1325 ml 1087 ml Output Total 800 ml 500 ml Balance 525 ml 587 ml Intake Oral 1100 ml 300 ml IV Total 225 ml 787 ml Output Urine Total 800 ml 500 ml # Voids 2 Laboratory Tests 11/28/16 22:43: Stool Occult Blood Negative 11/29/16 05:10: White Blood Count 5.1#, Red Blood Count 4.71, Hemoglobin 14.2, Hematocrit 43.5, Mean Corpuscular Volume 92, Mean Corpuscular Hemoglobin 30.1, Mean Corpuscular Hemoglobin Concent 32.7, Red Cell Distribution Width 12.9, Platelet Count 168, Mean Platelet Volume 8.1, Neutrophils (%) (Auto) 55.9, Lymphocytes (%) (Auto) 25.4, Monocytes (%) (Auto) 13.7H, Eosinophils (%) (Auto) 3.8H, Basophils (%) ( Auto) 1.1, Activated Partial Thromboplast Time 28, Sodium Level 146H, Potassium Level 3.6, Chloride Level 107, Carbon Dioxide Level 26, Anion Gap 13, Blood Urea Nitrogen 10, Creatinine 0.8, Estimat Glomerular Filtration Rate , Glucose Level 103, Calcium Level 8.6, Total Bilirubin 0.9, Aspartate Amino Transf (AST/ SGOT) 17, Alanine Aminotransferase (ALT/SGPT) 10, Alkaline Phosphatase 66, Total Protein 5.8L, Albumin 3.4L, Globulin 2.4, Albumin/Globulin Ratio 1.4, Amylase Level 39, Lipase 22 Height (Feet): 5 Height (Inches): 5.00 Weight (Pounds): 120 Objective Assessment - N/V - resolved - past h/o colitis Recommendations - push po - d/c planning - f/u with prior GI KIRAN LEE Nov 29, 2016 17:56
--- NOTE | 2016-11-29 18:44 | Cardiology Report ---
APPROVED REPORT EXAM: Two-dimensional and M-mode echocardiogram with Doppler and color Doppler. INDICATION Pericardial effusion M-Mode DIMENSIONS IVSd0.6 (0.7-1.1cm)Left Atrium (MM)3.4 (1.6-4.0cm) LVDd4.1 (3.5-5.6cm)Aortic Root2.6 (2.0-3.7cm) PWd0.8 (0.7-1.1cm)Aortic Cusp Exc.1.8 (1.5-2.0cm) LVDs2.7 (2.5-4.0cm) PWs0.9 cm Normal left ventricular chamber size, systolic function and wall motion. Left ventricular ejection fraction estimated to be 60-65 %. No evidence of left ventricular hypertrophy. No evidence of pericardial fat or effusion. Mild bi-atrial enlargement by 2D. Focal aortic valve sclerosis with adequate cusp excursion Thickened mitral valve leaflets with normal excursion. Mild mitral annulus and aortic root calcification. Pulmonic valve not well visualized. Normal tricuspid valve structure. IVC is normal in size with physiologic collapse. A color flow and spectral Doppler study was performed and revealed: No aortic regurgitation. Trace mitral regurgitation. Left ventricular diastolic dysfunction grade 1. Moderate tricuspid regurgitation. Tricuspid systolic velocities suggests peak right ventricular systolic pressure of 32 mmHg
--- NOTE | 2016-11-29 18:49 | Cardiology Report ---
APPROVED REPORT EKG Measurement Heart [id number] IL 190P80 [id number] Normal sinus rhythm Possible Left atrial enlargement Cannot rule out Anterior infarct, age undetermined Abnormal ECG
--- NOTE | 2016-11-29 23:13 | Pulmonology Progress Note ---
Assessment/Plan Problems: (1) Abdominal pain (2) Intractable nausea and vomiting (3) Dehydration Subjective Allergies: Coded Allergies: No Known Allergies (Unverified , 11/28/16) Objective Last 24 Hour Vital Signs Date Time Temp Pulse Resp B/P Pulse Ox O2 Delivery O2 Flow Rate FiO2 11/29/16 14:33 96.8 11/29/16 12:00 96.8 75 19 139/76 100 Room Air 11/29/16 08:00 97.7 72 20 114/59 98 Room Air 11/29/16 04:00 98.6 72 17 126/59 100 Room Air 11/29/16 00:00 98.6 80 17 135/67 99 Room Air Intake and Output 11/28/16 11/29/16 19:00 07:00 Intake Total 1325 ml 1087 ml Output Total 800 ml 500 ml Balance 525 ml 587 ml Intake Oral 1100 ml 300 ml IV Total 225 ml 787 ml Output Urine Total 800 ml 500 ml # Voids 2 Laboratory Tests 11/29/16 05:10: White Blood Count 5.1#, Red Blood Count 4.71, Hemoglobin 14.2, Hematocrit 43.5, Mean Corpuscular Volume 92, Mean Corpuscular Hemoglobin 30.1, Mean Corpuscular Hemoglobin Concent 32.7, Red Cell Distribution Width 12.9, Platelet Count 168, Mean Platelet Volume 8.1, Neutrophils (%) (Auto) 55.9, Lymphocytes (%) (Auto) 25.4, Monocytes (%) (Auto) 13.7H, Eosinophils (%) (Auto) 3.8H, Basophils (%) ( Auto) 1.1, Activated Partial Thromboplast Time 28, Sodium Level 146H, Potassium Level 3.6, Chloride Level 107, Carbon Dioxide Level 26, Anion Gap 13, Blood Urea Nitrogen 10, Creatinine 0.8, Estimat Glomerular Filtration Rate , Glucose Level 103, Calcium Level 8.6, Total Bilirubin 0.9, Aspartate Amino Transf (AST/ SGOT) 17, Alanine Aminotransferase (ALT/SGPT) 10, Alkaline Phosphatase 66, Total Protein 5.8L, Albumin 3.4L, Globulin 2.4, Albumin/Globulin Ratio 1.4, Amylase Level 39, Lipase 22 MICHAEL BONNER Nov 29, 2016 23:13
--- NOTE | 2016-11-30 04:38 | Consultation ---
DATE OF CONSULTATION: 11/28/2016 GASTROENTEROLOGY CONSULTATION CHIEF COMPLAINT: I was asked to see this patient by Dr. David Duckworth for evaluation of vomiting and dizziness. HISTORY OF PRESENT ILLNESS: The patient is a pleasant 86-year-old white woman who comes into the hospital for a 1-day history of acute vomiting and dizziness. The patient denies any hematemesis and has had no diarrhea or melena. She does carry a chart diagnosis of colitis, but details of this are unclear, and the patient has not had a colonoscopy for about 10 years. She states that she has been diagnosed with history of colitis several decades ago, but again no details were available. She feels better today and has recovered from most of her symptoms. She had received intravenous hydration. The CT scan has been negative. PAST MEDICAL HISTORY: Vague history of colitis as described above. FAMILY HISTORY: Noncontributory. SOCIAL HISTORY: The patient is . She lives at home. She does not smoke or drink. REVIEW OF SYSTEMS: Otherwise negative. MEDICATIONS: See chart list for details. PHYSICAL EXAMINATION: GENERAL: The patient is a pleasant white woman in no distress. HEENT: Normocephalic and atraumatic. Sclerae anicteric. Oropharynx is clear. NECK: Supple. CHEST: Clear to auscultation. CARDIOVASCULAR: Regular rhythm and rate. ABDOMEN: Soft and nontender. Good bowel sounds. EXTREMITIES: Revealed no edema. LABORATORY DATA: Noted. ASSESSMENT: This patient presents with acute nausea, vomiting, and dizziness, which may be viral gastroenteritis. If so, the patient's symptoms are resolving rapidly without treatment. She can be hydrated and treated supportively. The patient's diagnosis of colitis to me unclear. She should follow up with her previous medical claims processor with respect to long-term management and treatment. RECOMMENDATIONS: 1. Continue IV hydration. 2. PO diet as tolerated. 3. Follow laboratory parameters and exam. 4. Likely discharge planning soon. Jr Franco M.D. DR: TAVARES JOB#: [id number] CC:
--- NOTE | 2016-11-30 08:33 | Diagnostic Imaging Report ---
Indication: Abdominal pain Technique: CT of the abdomen and pelvis utilizing automated exposure control with intravenous contrast. Venous scanning performed. CT dose: Total DLP 734 mGycm; CTDI vol 15.0 mGy Comparison: None Findings: There is atelectasis in the lung bases. There is a small hiatal hernia with thickening of the distal esophagus. The heart is enlarged. Atherosclerotic changes are present. The abdominal aorta is normal in caliber. The liver, adrenal glands, spleen and the pancreas are grossly unremarkable. No CT evident gallstones are seen. Kidneys are grossly unremarkable as evaluated in the excretory phase. The uterus is absent. There is no definitive evidence of appendicitis. There is extensive colonic diverticulosis without obvious diverticulitis. Bladder is grossly unremarkable. There is a tiny fat-containing paraumbilical hernia. Degenerative changes of the spine are seen. There is grade 1 anterolisthesis of L4 on L5. Impression: Extensive colonic diverticulosis without definitive evidence of diverticulitis. Clinical correlation recommended. Absent uterus. Small hiatal hernia. Wall thickening versus underdistention of the partially visualized distal esophagus. Esophagitis not excluded and clinical correlation recommended. Cardiomegaly. Atherosclerotic changes. Degenerative changes of the spine. 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 Other findings as above. The CT scanner at [facility] is accredited by the [employer] and the scans are performed using protocols designed to limit radiation exposure to as low as reasonably achievable to attain images of sufficient resolution adequate for diagnostic evaluation.
--- NOTE | 2016-11-30 08:33 | Diagnostic Imaging Report ---
Indication: Shortness of breath Technique: XRAY CHEST 1 V Comparison: None Findings: Overlying artifact limits evaluation. Cardiac silhouette is mildly prominent. There is no obvious consolidation. There is atelectasis in the left base. Atherosclerotic changes are present. There is osteopenia. Degenerative changes of the spine are noted. Impression: Limited examination secondary to overlying artifact. Left basilar atelectasis. Repeat imaging recommended as indicated.
--- NOTE | 2016-12-01 11:11 | Discharge Summary ---
Discharge Summary Hospital Course Date of Admission Nov 28, 2016 at 03:13 Date of Discharge Nov 29, 2016 at 15:00 Admitting Diagnosis ABD PAIN, VOMITING HPI Lisa Strickland is a 86 year old female who was admitted on Nov 28, 2016 at 03: 13 for Abdominal Pain,Vomiting Hospital Course dc summary # [id number] Discharge Condition Upon Discharge: stable Discharge Disposition Patient signed AMA Discharge Diagnoses: Discharge Instructions Discharge Instructions Special Instructions I have been assigned to complete a D/C Summary on this account. I was not involved in the patient management Sonali Pacheco NP ([place]) Dec 01, 2016 11:11
--- NOTE | 2016-12-02 07:09 | Discharge Summary 2 SIG ---
DATE OF ADMISSION: 11/28/2016 DATE OF SIGNING AGAINST MEDICAL ADVICE: 11/29/2016 REASON FOR ADMISSION: 86-year-old female presented to the emergency room with complaint of intractable nausea, vomiting, and abdominal pain. Symptoms started recently. She vomited twice. She described vomitus as nonbloody and nonbilious. Pain described as diffuse, non radiating, crampy, 7/10 on a scale 1 to 10. She also felt dizzy and unsteady on her feet. Barrel Straightener given intravenous fluids and antiemetic - Zofran. She felt better. No fever. She denied other complaints. No chest pain. No shortness of breath. No palpitations. CT of the abdomen and pelvis was essentially negative. It revealed extensive colonic diverticulosis without definite evidence of diverticulitis. Small hiatal hernia. Wall thickening versus underdistention of the partially visualized distal esophagus, esophagitis not excluded. Patient was admitted for further management ADMITTING DIAGNOSES intractable nausea and vomiting abdominal pain dizziness dehydration HOSPITAL STAY: Patient was admitted. GI consult requested, Abdominal ultrasound revealed no gallstones. No hydronephrosis. Normal echogenicity of bilateral kidneys, and unremarkable pancreas No fluid collection. Cardiology and Neurology were involved in the care of this patient. Per neurologist, due to the acute positional vertigo associated with dizziness, abnormal gait, nausea, and vomiting MRI of the brain was ordered to rule out acute stroke. The patient declined MRI of the brain, stating that she has a primary medical doctor and she can get an MRI of the brain as outpatient. Patient was placed on meclizine. Lipid panel showed elevated LDL. Neurologist recommended strict bed rest and maintain fall precautions. Dairy Manufacturing Technologist checked echocardiogram, which revealed preserved ejection fraction of 60% to 65%, right ventricular systolic pressure of 32, as well as no evidence of left ventricular hypertrophy, and moderate tricuspid regurgitation. DVT and GI prophylaxis provided. Bowel regimen provided. The patient was counseled on low-fat cardiac diet. The patient initially was on the IV fluids due to dehydration secondary to intractable nausea and vomiting. Dehydration resolved after IV fluids. Per Gl, the patient likely had acute viral gastroenteritis. He decided to treat it symptomatically : supportive treatment and hydration. No new neurological findings, no focal deficits. Patient adamantly denied to stay in the hospital and signed against medical advice form. She did not want to wait for the doctor to call back. FINAL DIAGNOSES: 1. Probable acute viral gastroenteritis. 2. Acute positional vertigo, possibly due to benign positional vertigo, rule out stroke. 3. Dehydration, secondary to intractable nausea and vomiting, resolved. 4. Type 1 diabetes mellitus. 5. Abdominal pain. David Duckworth D.O. I have been assigned to dictate discharge summary on this account and I was not involved in the patient's management. Sonali LopezCatskill Regional Medical Centertip N.PRashad DR: Jermaine JOB#: [id number] CC: ARMANDO
== END 2016-11-29 15:00 | disposition left against medical advice (07) | DRG 641 ==
LOC: EDBD 00:44 → EMR 01:26 → 4E 03:13 → EDBEDREQ 03:29
DX: E86.0 Dehydration (principal); A08.4 Viral intestinal infection, unspecified; E11.65 Type 2 diabetes mellitus with hyperglycemia; H81.10 Benign paroxysmal vertigo, unspecified ear; H91.90 Unspecified hearing loss, unspecified ear
CPT/HCPCS: 36415; 71010; 74177; 76700; 80053; 80061; 81001; 82150; 82270; 82607; 83690; 84484; 85025; 85730; 93005; 93306; J2405; J2765